=== PATIENT | male | born 1970 | race Caucasian/White ===

== ENCOUNTER 2019-01-09 12:21 | Outpatient (CLI) | payer OTHER ==
[2019-01-09 14:05] LABS: Hemoglobin 15.2 g/dL (14.0-18.0); Mean Corpuscular HGB CONC 34.3 g/dL (32.0-36.0); Mean Corpuscular Hemoglobin 29.4 pg (27.0-31.0); Mean Corpuscular Volume 85.9 fL (78.0-98.0); Platelet Count 240 thou/uL (130-400); RBC Distribution Width 13.3 % (11.5-14.5); Red Blood Cell (RBC) Count 5.18 mill/uL (4.70-6.10); White Blood Cell (WBC) Count 6.1 thou/uL (4.8-10.8)
[2019-01-09 14:06] LABS: Bilirubin Negative (Negative); Blood, Urine Negative (Negative); Glucose, Urine (Dipstick) Negative (Negative); Leukocyte Small (Negative); Nitrite Negative (Negative); Protein, Urine (Dipstick) Negative (Neg-Trace); Urobilinogen 0.2 mg/dL (Less than 2)
[2019-01-09 14:08] LABS: INR-International Normal Ratio 0.9; PTT 33.4 SEC (22.9-36.1); Prothrombin Time 12.5 SEC (12.0-14.7)
[2019-01-09 14:13] LABS: Clarity Clear (Clear)
[2019-01-09 14:20] LABS: Anion Gap 16 mmol/L (10-20); BUN (Urea Nitrogen) 18 mg/dL (8.9-20.6); Calc. Creatinine Clearance 0 mL/min (70-130); Calcium 9.4 mg/dL (7.8-10.44); Carbon Dioxide 24 mmol/L (22-29); Chloride 102 mmol/L (98-107); Estimated GFR-MDRD 74; Glucose 94 mg/dL (70-105); Potassium 4.2 mmol/L (3.5-5.1); Sodium 138 mmol/L (136-145)
[2019-01-09 14:25] LABS: Bacteria/HPF None Seen HPF (None Seen); Hyaline Casts/LPF NONE SEEN LPF (0-3 Hyaline); RBC/HPF 0-3 HPF (0-3); Squamous Epithelial 0-3 HPF (0-3)
== END 2019-01-09 12:22 | disposition home or self-care (01) ==
LOC: LABBT 12:21
PROVIDERS: ATTEND Urology
DX: Z01.818 Encounter for other preprocedural examination (principal); N40.1 Benign prostatic hyperplasia with lower urinary tract symptoms; R35.0 Frequency of micturition; R35.1 Nocturia; N52.1 Erectile dysfunction due to diseases classified elsewhere; R79.89 Other specified abnormal findings of blood chemistry
CPT/HCPCS: 80048; 81001; 85027; 85610; 85730; 87086; 93005; 93010

== ENCOUNTER 2019-02-16 07:14 | Day surgery (SDC) | payer OTHER ==
[2019-01-09 12:31] VITALS: BMI 40.8
[2019-02-16 07:55] LABS: #Basophils 0.1 thou/uL (0.0-0.2); #Eosinphils 0.2 thou/uL (0.0-0.7); #Lymphocytes 2.2 thou/uL (1.20-3.40); #Monocytes 0.6 thou/uL (0.11-0.59); #Neutrophils 5.3 thou/uL (1.40-6.50); %Basophils 0.7 % (0.0-1.0); %Lymphocytes 26.7 % (21.0-51.0); %Monocytes 6.8 % (0.0-10.0); %Neutrophils 63.7 % (42.0-75.0); Hemoglobin 17.2 g/dL (14.0-18.0); Mean Corpuscular HGB CONC 33.3 g/dL (32.0-36.0); Mean Corpuscular Hemoglobin 28.1 pg (27.0-31.0); Mean Corpuscular Volume 84.3 fL (78.0-98.0); Mean Platelet Volume 7.3 fL (7.4-10.4); Platelet Count 255 thou/uL (130-400); RBC Distribution Width 13.4 % (11.5-14.5); White Blood Cell (WBC) Count 8.2 thou/uL (4.8-10.8)
[2019-02-16 08:07] LABS: PTT 36.7 SEC (22.9-36.1); Prothrombin Time 13.3 SEC (12.0-14.7)
[2019-02-16] MEDS ORDERED: Levofloxacin 500 mg/D5W 100 ml Premix Bag ONE (08:13)
[2019-02-16 08:14] LABS: Anion Gap 12 mmol/L (10-20); BUN (Urea Nitrogen) 24 mg/dL (8.9-20.6); Calc. Creatinine Clearance 120 mL/min (70-130); Calcium 10.3 mg/dL (7.8-10.44); Carbon Dioxide 28 mmol/L (22-29); Chloride 103 mmol/L (98-107); Estimated GFR-MDRD 56; Glucose 110 mg/dL (70-105); Potassium 4.4 mmol/L (3.5-5.1); Sodium 139 mmol/L (136-145)
[2019-02-16] MEDS ORDERED: Propofol 500 MG/50 ML VIAL ONE (10:21)
[2019-02-16] MEDS ORDERED: Fentanyl 100 MCG/2 ML VIAL ONE (10:21)
[2019-02-16] MEDS ORDERED: Midazolam HCl 2 mg/2 ml Vial ONE (10:21)
[2019-02-16 10:24] LABS: Bacteria/HPF None Seen HPF (None Seen); Bilirubin Negative (Negative); Blood, Urine Negative (Negative); Clarity Clear (Clear); Glucose, Urine (Dipstick) Normal (Negative); Leukocyte 25 Leu/uL (Negative); Mucous/LPF 1+ LPF (<2+); Nitrite Negative (Negative); Protein, Urine (Dipstick) Negative (Neg-Trace); RBC/HPF 0-3 HPF (0-3); Squamous Epithelial 0-3 HPF (0-3); Urobilinogen Normal mg/dL (Less than 2)
== END 2019-02-16 11:07 | disposition home or self-care (01) ==
LOC: SDC 07:14
PROVIDERS: ATTEND Urology
DX: N40.1 Benign prostatic hyperplasia with lower urinary tract symptoms (principal); F32.9 Major depressive disorder, single episode, unspecified; K21.9 Gastro-esophageal reflux disease without esophagitis; M19.90 Unspecified osteoarthritis, unspecified site; G47.30 Sleep apnea, unspecified; F17.290 Nicotine dependence, other tobacco product, uncomplicated; Z53.09 Procedure and treatment not carried out because of other contraindication; Z79.899 Other long term (current) drug therapy; Z98.1 Arthrodesis status; Z99.89 Dependence on other enabling machines and devices
CPT/HCPCS: 36415; 80048; 81001; 85025; 85610; 85730; 87077; 87086; J1956; J2250; J2704; J3010

== ENCOUNTER 2019-04-25 19:30 | Outpatient (CLI) | payer OTHER | END 2019-04-25 19:31 | disposition home or self-care (01) | LOC: SLEEPLAB 19:30 | PROVIDERS: ATTEND Internal Medicine Critical Care Medicine | DX: G47.33 Obstructive sleep apnea (adult) (pediatric) (principal); R53.83 Other fatigue; R06.83 Snoring; G47.00 Insomnia, unspecified; G47.10 Hypersomnia, unspecified; F41.9 Anxiety disorder, unspecified; G25.81 Restless legs syndrome | CPT/HCPCS: 95810; 95811 ==

== ENCOUNTER 2019-10-03 14:46 | Outpatient (CLI) | payer OTHER ==
--- NOTE | 2019-10-03 15:17 | RAD ---
THREE VIEWS SACROILIAC JOINTS: HISTORY: Back pain. Arthritis. COMPARISON: None. FINDINGS: Sacroiliac joints demonstrate a symmetric appearance bilaterally. No sclerosis or periarticular eros ions are seen involving the sacroiliac joints bilaterally. There is partial sacralization of the L5- S1 level on the left with pseudoarticulation of the left lateral mass of L5 with this one. Degenerat gill changes are seen with limited visualized lower lumbar spine. No other osseous abnormality. IMPRESSION: 1. 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 Sacroiliac joints have a normal asymmetri c appearance without acute osseous abnormality visualized. POS: MARIAH
== END 2019-10-03 14:47 | disposition home or self-care (01) ==
LOC: BICRAD 14:46
PROVIDERS: ATTEND Internal Medicine Rheumatology
DX: M46.1 Sacroiliitis, not elsewhere classified (principal); M25.551 Pain in right hip; M25.552 Pain in left hip; M89.9 Disorder of bone, unspecified
CPT/HCPCS: 72202

== ENCOUNTER 2020-10-08 15:06 | Outpatient (CLI) | payer OTHER | END 2020-10-08 15:07 | disposition home or self-care (01) | LOC: SCSRAD 15:06 | PROVIDERS: ATTEND Internal Medicine Rheumatology | DX: M79.671 Pain in right foot (principal); S92.351A Displaced fracture of fifth metatarsal bone, right foot, initial encounter for closed fracture ==

== ENCOUNTER 2020-10-21 07:17 | Day surgery (SDC) | payer OTHER ==
[2020-10-20 11:28] VITALS: BMI 45.9
[2020-10-21 09:04] VITALS: BP 98/52; TEMP 98.7
[2020-10-21] MEDS ORDERED: Iopamidol-M 300 61% 15 ML VIAL ONE (09:12)
[2020-10-21] MEDS ORDERED: Ondansetron ODT 4 MG TAB ONE (09:27)
== END 2020-10-21 10:35 | disposition home or self-care (01) ==
LOC: RAD 07:17
PROVIDERS: ATTEND Neurological Surgery
PROC: B02B1ZZ Computerized Tomography (CT Scan) of Spinal Cord using Low Osmolar Contrast (ICD-10-PCS; principal; 2020-10-21)
DX: M51.16 Intervertebral disc disorders with radiculopathy, lumbar region (principal); M48.061 Spinal stenosis, lumbar region without neurogenic claudication; M48.04 Spinal stenosis, thoracic region; M48.05 Spinal stenosis, thoracolumbar region; M48.02 Spinal stenosis, cervical region; I70.0 Atherosclerosis of aorta; I10 Essential (primary) hypertension; J30.2 Other seasonal allergic rhinitis; K21.9 Gastro-esophageal reflux disease without esophagitis; E78.00 Pure hypercholesterolemia, unspecified; M19.90 Unspecified osteoarthritis, unspecified site; E66.9 Obesity, unspecified; G47.30 Sleep apnea, unspecified; G25.81 Restless legs syndrome; Z79.899 Other long term (current) drug therapy
CPT/HCPCS: 62305; 72126; 72129; 72132; Q0162; Q9967

== ENCOUNTER 2021-04-21 16:12 | Outpatient (CLI) | payer OTHER | END 2021-04-21 16:13 | disposition home or self-care (01) | LOC: BICRAD 16:12 | PROVIDERS: ATTEND Family Medicine | DX: J40 Bronchitis, not specified as acute or chronic (principal) | CPT/HCPCS: 71046 ==

== ENCOUNTER 2021-12-11 14:48 | Outpatient (CLI) | payer OTHER | END 2021-12-11 14:49 | disposition home or self-care (01) | LOC: BICRAD 14:48 | PROVIDERS: ATTEND Pain Medicine Interventional Pain Medicine | DX: M79.642 Pain in left hand (principal); M96.1 Postlaminectomy syndrome, not elsewhere classified; M19.041 Primary osteoarthritis, right hand ==

== ENCOUNTER 2022-10-27 16:59 | Outpatient (CLI) | payer OTHER | END 2022-10-27 17:00 | disposition home or self-care (01) | LOC: SCSRAD 16:59 | PROVIDERS: ATTEND Family Medicine | DX: R22.42 Localized swelling, mass and lump, left lower limb (principal) ==

== ENCOUNTER 2024-04-09 12:50 | Outpatient (CLI) | payer OTHER | END 2024-04-09 12:51 | disposition home or self-care (01) | LOC: SCSRAD 12:50 | PROVIDERS: ATTEND Nurse Practitioner Family | DX: R06.02 Shortness of breath (principal) | CPT/HCPCS: 71046 ==

== ENCOUNTER 2024-07-20 15:34 | Outpatient (CLI) | payer OTHER | END 2024-07-20 15:35 | disposition home or self-care (01) | LOC: SCSRAD 15:34 | PROVIDERS: ATTEND Student in an Organized Health Care Education/Training Program | DX: R05.3 Chronic cough (principal) | CPT/HCPCS: 71046 ==